=== PATIENT | female | born 1990 | race Caucasian/White ===

== ENCOUNTER 2016-12-26 00:06 | Emergency (ER) | payer MEDICAID ==
[2016-12-26] MEDS ORDERED: ASPIRIN 81 MG CHEW TAB ONE (03:30)
[2016-12-26] MEDS ORDERED: NEB-ALBUTEROL 2.5 MG/3 ML INH ONE (04:21)
[2016-12-26] MEDS ORDERED: LIDOCAINE 1% MDV 20 ML ONE (15:33)
== END 2016-12-26 05:32 | disposition home or self-care (01) ==
LOC: ER 00:06
DX: R07.89 Other chest pain (principal); J98.01 Acute bronchospasm; F17.210 Nicotine dependence, cigarettes, uncomplicated
CPT/HCPCS: 36415; 71010; 80053; 82553; 83735; 84484; 85025; 93005; 94640